=== PATIENT | female | born 1980 | race Hispanic/Latino ===

== ENCOUNTER 2022-09-07 18:50 | Observation (INO) | payer BC ==
--- OUTSIDE RECORDS SUMMARY | 2022-09-07 18:55 | XMS REPORT | Continuity of Care Document ---
:1980 Author Organization [facility] t Address [address] [place] [address] Dr. [address]. [address] [place] [address] Care Team Providers Name Role Phone Juan José Kaplan Jr. Primary Care Physician DR SULAIMAN LOPEZ Attending Clinician Unavailable Rissa Buckner PA-C Attending Clinician Padmini ALTMAN, Audrey Pineda Attending Clinician Unavailable Only, Ang Db Test Attending Clinician Unavailable Cassidy Martinez Attending Clinician CASSIDY PRIEST Attending Clinician Unavailable SHARON MUHAMMAD Attending Clinician Unavailable Laenn Cortes Attending Clinician LEANN LOCKE Attending Clinician Unavailable Rogelio ALTMAN, Yeny Mckeon Attending Clinician Unavailable RISSA BUCKNER Attending Clinician Unavailable Doctor Unassigned, [place] Attending Clinician Unavailable Juan José Kaplan Attending Clinician Unavailable Juan José Kaplan Attending Clinician Lab, [facility] Pob I Attending Clinician Unavailable Tian Correia Attending Clinician Unavailable Nurse, [facility] Pob I Attending Clinician Unavailable Jennifer FIELD CROP FARMING SUPERVISOR, Argenis Attending Clinician Rachel ALTMAN, Asiya Attending Clinician Unavailable Prasanna FIELD CROP FARMING SUPERVISOR, Sharon Attending Clinician Ari ALTMAN, Joi Hargrove Attending Clinician Unavailable Only, Adc Test Attending Clinician Unavailable Lionel LEE, Claus Attending Clinician Michael LEE, Cristi Parry Attending Clinician Halle Heller Attending Clinician Unavailable KAITLYNN SHIN Attending Clinician Unavailable DR SULAIMAN LOPEZ Admitting Clinician Unavailable Juan José Kaplan Admitting Clinician Unavailable Halle Heller Admitting Clinician Unavailable Physician, No Primary or Family Admitting Clinician Unavaila ble Payers Payer Name Policy Type Policy Number Effective Date Expiration Date S rissa [id number] 1959 00:00:00 Problems Condition Condition Condition Status Onset Resolution Last Treating Co mments Source Name Details Category Date Date Treatment Clinician Date Loss of Loss of Disease Active Univers weight weight 7-30 ity of 00:00: [place] [address] Medical Branch Nausea Nausea Disease Active Univers with with 7-30 ity of vomiting vomiting 00:00: [address] Branch Normal Normal Disease Active Univers delivery delivery 7-25 ity of 00:00: [place] [address] Medical [place] Hypothyroi Hypothyroi Disease Active Overview : Univers dism dism Formattin ity of g of this [place] note Medical might be Branch different from the original. ICD10 Diagnosis Term Lab Asst Utility Asthma Asthma Disease Active Overview: Univer s Formattin ity of g of this [place] note Medical might be Branch different from the original. ICD10 Diagnosis Term Lab Asst Utility Vaginal Vaginal Disease Active Overview: Univ ers leukorrhea leukorrhea Formattin ity of g of this [place] note Medical might be Branch different from the original. ICD10 Diagnosis Term Lab Asst Utility Morbid Morbid Disease Active Univers obesity obesity ity of [facility] Supervisio Supervisio Disease Active Overview : Univers n of other n of other Formattin ity of high-risk high-risk g of this [place] Medi obinna might be Branch different from the original. ICD10 Diagnosis Term Lab Asst Utility Allergies, Adverse Reactions, Alerts Allergy Allergy Status Severity Reaction(s) Onset Inactive Treating Comm ents Source Name Type Date Date Clinician No Known DA Active [facility] 2020-0 [facility] No Known DA Active U 2020-0 [facility] Allergie 8-24 [facility] 00:[facility] 00 l [facility] No Known DA Active U 2020-0 [facility] Allergie 2-24 [place] [facility] 00:[facility]: d 00 [facility] No Known DA Active U 2020-0 [facility] Allergie 2-24 [place] 00:[facility]: d 00 [facility] NO KNOWN Drug Active Univers ALLERGIE Class ity of S [facility] No Known DA Active [facility] s Social History Social Habit Start Date Stop Date Quantity Comments Source History SDOH University o f Alcohol Frequency [facility] edical Branch History SDOH University o f Alcohol Std [place] [facility] Drinks Branch History SDOH University o f Alcohol Binge [place] Medic al [place] Alcohol intake 2022-05-09 2022-05-09 0 /d University of 00:00:00 00:00:00 [facility] Exposure to 2022-03-25 2022-04-04 Yes [facility] SARS-CoV-2 00:00:00 14:26:00 [facility] (event) [place] Tobacco use and 2015-11-23 2015-11-23 Smokeless tobacco Un iversity of exposure 00:00:00 00:00:00 non-user [facility] Alcohol Comment 2015-11-23 2015-11-23 Rare Universit y of 00:00:00 00:00:00 [facility] Sex Assigned At [birth year] Universit y of 00:00:00 00:00:00 [facility] Smoking Status Start Date Stop Date Source Never smoked tobacco [facility] Medications Ordered Filled Start Stop Current Ordering Indication Dosage Frequency Signature Comments Components Source Medication Medication Date Date Medication? Clinician (SIG) Name Name tequilaphenira Yes [id number] 5mL Take 5 mL Univers mine-pseudo 1-23 by mouth 3 it y of ephedrine-D 00:00: (three) Buddy as M (BROMFED 00 times Medical DM) 2-30-10 daily as Bran ch mg/5 mL needed for syrup Cold symptoms. fluticasone 0 Yes [id number] 2{spray Use 2 Univers propionate 1-23 } Sprays in ity of 50 00:00: each [place] mcg/actuati 00 nostril Medic al on nasal daily. Branch spray cetirizine 0 Yes [id number] 10mg Take 1 U nivers 10 mg 1-23 tablet by ity of tablet 00:00: mouth [place] 00 daily. Medical Branch bromphenira 0 Yes [id number] 5mL Take 5 mL Univers mine-pseudo 1-23 by mouth 3 it y of ephedrine-D 00:00: (three) Buddy as M (BROMFED 00 times Medical DM) 2-30-10 daily as Bran ch mg/5 mL needed for syrup Cold symptoms. fluticasone 0 Yes [id number] 2{spray Use 2 Univers propionate 1-23 } Sprays in ity of 50 00:00: each [place] mcg/actuati 00 nostril Medic al on nasal daily. Branch spray cetirizine 0 Yes [id number] 10mg Take 1 U nivers 10 mg 1-23 tablet by ity of tablet 00:00: mouth [place] 00 daily. Medical Branch bromphenira 0 Yes [id number] 5mL Take 5 mL Univers mine-pseudo 1-23 by mouth 3 it y of ephedrine-D 00:00: (three) Buddy as M (BROMFED 00 times Medical DM) 2-30-10 daily as Bran ch mg/5 mL needed for syrup Cold symptoms. fluticasone 2021-0 Yes [id number] 2{spray Use 2 Univers propionate 1-23 } Sprays in ity of 50 00:00: each [place] mcg/actuati 00 nostril Medic al on nasal daily. Branch spray cetirizine 2021-0 Yes [id number] 10mg Take 1 U nivers 10 mg 1-23 tablet by ity of tablet 00:00: mouth [place] 00 daily. Medical Branch bromphenira 2022-0 Yes [id number] 5mL Take 5 mL Univers mine-pseudo 1-23 by mouth 3 it y of ephedrine-D 00:00: (three) Buddy as M (BROMFED 00 times Medical DM) 2-30-10 daily as Bran ch mg/5 mL needed for syrup Cold symptoms. fluticasone 2021-0 Yes [id number] 2{spray Use 2 Univers propionate 1-23 } Sprays in ity of 50 00:00: each [place] mcg/actuati 00 nostril Medic al on nasal daily. Branch spray cetirizine 0 Yes [id number] 10mg Take 1 U nivers 10 mg 1-23 tablet by ity of tablet 00:00: mouth [place] 00 daily. Medical Branch bromphenira 0 Yes [id number] 5mL Take 5 mL Univers mine-pseudo 1-23 by mouth 3 it y of ephedrine-D 00:00: (three) Buddy as M (BROMFED 00 times Medical DM) 2-30-10 daily as Bran ch mg/5 mL needed for syrup Cold symptoms. fluticasone 2021-0 Yes [id number] 2{spray Use 2 Univers propionate 1-23 } Sprays in ity of 50 00:00: each [place] mcg/actuati 00 nostril Medic al on nasal daily. Branch spray cetirizine 0 Yes [id number] 10mg Take 1 U nivers 10 mg 1-23 tablet by ity of tablet 00:00: mouth [place] 00 daily. Medical Branch bromphenira 0 Yes [id number] 5mL Take 5 mL Univers mine-pseudo 1-23 by mouth 3 it y of ephedrine-D 00:00: (three) Buddy as M (BROMFED 00 times Medical DM) 2-30-10 daily as Bran ch mg/5 mL needed for syrup Cold symptoms. fluticasone 2021-0 Yes [id number] 2{spray Use 2 Univers propionate 1-23 } Sprays in ity of 50 00:00: each [place] mcg/actuati 00 nostril Medic al on nasal daily. Branch spray cetirizine 2021-0 Yes [id number] 10mg Take 1 U nivers 10 mg 1-23 tablet by ity of tablet 00:00: mouth [place] 00 daily. Medical Branch bromphenira 2021-0 Yes [id number] 5mL Take 5 mL Univers mine-pseudo 1-23 by mouth 3 it y of ephedrine-D 00:00: (three) Buddy as M (BROMFED 00 times Medical DM) 2-30-10 daily as Bran ch mg/5 mL needed for syrup Cold symptoms. fluticasone 2021-0 Yes [id number] 2{spray Use 2 Univers propionate 1-23 } Sprays in ity of 50 00:00: each [place] mcg/actuati 00 nostril Medic al on nasal daily. Branch spray cetirizine 2021-0 Yes [id number] 10mg Take 1 U nivers 10 mg 1-23 tablet by ity of tablet 00:00: mouth [place] 00 daily. Medical Branch bromphenira 0 Yes [id number] 5mL Take 5 mL Univers mine-pseudo 1-23 by mouth 3 it y of ephedrine-D 00:00: (three) Buddy as M (BROMFED 00 times Medical DM) 2-30-10 daily as Bran ch mg/5 mL needed for syrup Cold symptoms. fluticasone 2021-0 Yes [id number] 2{spray Use 2 Univers propionate 1-23 } Sprays in ity of 50 00:00: each [place] mcg/actuati 00 nostril Medic al on nasal daily. Branch spray cetirizine 2021-0 Yes [id number] 10mg Take 1 U nivers 10 mg 1-23 tablet by ity of tablet 00:00: mouth [place] 00 daily. Medical Branch bromphenira 2021-0 Yes [id number] 5mL Take 5 mL Univers mine-pseudo 1-23 by mouth 3 it y of ephedrine-D 00:00: (three) Buddy as M (BROMFED 00 times Medical DM) 2-30-10 daily as Bran ch mg/5 mL needed for syrup Cold symptoms. fluticasone 2021-0 Yes [id number] 2{spray Use 2 Univers propionate 1-23 } Sprays in ity of 50 00:00: each [place] mcg/actuati 00 nostril Medic al on nasal daily. Branch spray cetirizine 2021-0 Yes [id number] 10mg Take 1 U nivers 10 mg 1-23 tablet by ity of tablet 00:00: mouth [place] 00 daily. Medical Branch ALBUTEROL [id number] Yes PRN Univers INHALE 2-15 ity of 19:14: [address] levothyroxi 0 Yes 300ug Take 300 U nivers ne 2-15 mcg by ity of (SYNTHROID, 19:14: mouth [place] LEVOTHROID) 41 daily. Medica l 300 mcg Branch tablet ALBUTEROL 0 Yes PRN Univers INHALE 2-15 ity of 19:14: [address] levothyroxi 0 Yes 300ug Take 300 U nivers ne 2-15 mcg by ity of (SYNTHROID, 19:14: mouth [place] LEVOTHROID) 41 daily. Medica l 300 mcg Branch tablet ALBUTEROL 0 Yes PRN Univers INHALE 2-15 ity of 19:14: [address] levothyroxi Yes 300ug Take 300 U nivers ne 2-15 mcg by ity of (SYNTHROID, 19:14: mouth [place] LEVOTHROID) 41 daily. Medica l 300 mcg Branch tablet ALBUTEROL 0 Yes PRN Univers INHALE 2-15 ity of 19:14: [address] levothyroxi Yes 300ug Take 300 U nivers ne 2-15 mcg by ity of (SYNTHROID, 19:14: mouth [place] LEVOTHROID) 41 daily. Medica l 300 mcg Branch tablet ALBUTEROL 0 Yes PRN Univers INHALE 2-15 ity of 19:14: [address] levothyroxi Yes 300ug Take 300 U nivers ne 2-15 mcg by ity of (SYNTHROID, 19:14: mouth [place] LEVOTHROID) 41 daily. Medica l 300 mcg Branch tablet ALBUTEROL 0 Yes PRN Univers INHALE 2-15 ity of 19:14: [address] levothyroxi 0 Yes 300ug Take 300 U nivers ne 2-15 mcg by ity of (SYNTHROID, 19:14: mouth [place] LEVOTHROID) 41 daily. Medica l 300 mcg Branch tablet ALBUTEROL 0 Yes PRN Univers INHALE 2-15 ity of 19:14: [address] levothyroxi 0 Yes 300ug Take 300 U nivers ne 2-15 mcg by ity of (SYNTHROID, 19:14: mouth [place] LEVOTHROID) 41 daily. Medica l 300 mcg Branch tablet ALBUTEROL 2016-0 Yes PRN Univers INHALE 2-15 ity of 19:14: [address] levothyroxi 2016-0 Yes 300ug Take 300 U nivers ne 2-15 mcg by ity of (SYNTHROID, 19:14: mouth [place] LEVOTHROID) 41 daily. Medica l 300 mcg Branch tablet ALBUTEROL 2015-0 Yes PRN Univers INHALE 2-15 ity of 19:14: [address] levothyroxi [id number] Yes 300ug Take 300 U nivers ne 2-15 mcg by ity of (SYNTHROID, 19:14: mouth [place] LEVOTHROID) 41 daily. Medica l 300 mcg Branch tablet ALBUTEROL 2015-0 Yes PRN Univers INHALE 2-15 ity of 19:14: [address] levothyroxi Yes 300ug Take 300 U nivers ne 2-15 mcg by ity of (SYNTHROID, 19:14: mouth [place] LEVOTHROID) 41 daily. Medica l 300 mcg Branch tablet ALBUTEROL 0 Yes PRN Univers INHALE 2-15 ity of 13:14: [address] levothyroxi 0 Yes 300ug Take 300 U nivers ne 2-15 mcg by ity of (SYNTHROID, 13:14: mouth [place] LEVOTHROID) 41 daily. Medica l 300 mcg Branch tablet ALBUTEROL 0 Yes PRN Univers INHALE 2-15 ity of 13:14: [address] levothyroxi 0 Yes 300ug Take 300 U nivers ne 2-15 mcg by ity of (SYNTHROID, 13:14: mouth [place] LEVOTHROID) 41 daily. Medica l 300 mcg Branch tablet ALBUTEROL 2015-0 Yes PRN Univers INHALE 2-15 ity of 13:14: [address] levothyroxi 2016-0 Yes 300ug Take 300 U nivers ne 2-15 mcg by ity of (SYNTHROID, 13:14: mouth [place] LEVOTHROID) 41 daily. Medica l 300 mcg Branch tablet ALBUTEROL 0 Yes PRN Univers INHALE 2-15 ity of 13:14: [address] levothyroxi 2016-0 Yes 300ug Take 300 U nivers ne 2-15 mcg by ity of (SYNTHROID, 13:14: mouth [place] LEVOTHROID) 41 daily. Medica l 300 mcg Branch tablet ALBUTEROL 0 Yes PRN Univers INHALE 2-15 ity of 13:14: [place] [address] Medical [place] levothyroxi [id number] Yes 300ug Take 300 U nivers ne 2-15 mcg by ity of (SYNTHROID, 13:14: mouth [place] LEVOTHROID) 41 daily. Medica l 300 mcg Branch tablet ALBUTEROL 0 Yes PRN Univers INHALE 2-15 ity of 13:14: [place] [address] Medical [place] levothyroxi Yes 300ug Take 300 U nivers ne 2-15 mcg by ity of (SYNTHROID, 13:14: mouth [place] LEVOTHROID) 41 daily. Medica l 300 mcg Branch tablet ALBUTEROL 0 Yes PRN Univers INHALE 2-15 ity of 13:14: [address] levothyroxi Yes 300ug Take 300 U nivers ne 2-15 mcg by ity of (SYNTHROID, 13:14: mouth [place] LEVOTHROID) 41 daily. Medica l 300 mcg Branch tablet ALBUTEROL 0 Yes PRN Univers INHALE 2-15 ity of 13:14: [address] levothyroxi 0 Yes 300ug Take 300 U nivers ne 2-15 mcg by ity of (SYNTHROID, 13:14: mouth [place] LEVOTHROID) 41 daily. Medica l 300 mcg Branch tablet ALBUTEROL 0 Yes PRN Univers INHALE 2-15 ity of 13:14: [place] [address] Medical [place] levothyroxi 0 Yes 300ug Take 300 U nivers ne 2-15 mcg by ity of (SYNTHROID, 13:14: mouth [place] LEVOTHROID) 41 daily. Medica l 300 mcg Branch tablet ALBUTEROL 0 Yes PRN Univers INHALE 2-15 ity of 13:14: [place] [address] Medical [place] levothyroxi 0 Yes 300ug Take 300 U nivers ne 2-15 mcg by ity of (SYNTHROID, 13:14: mouth [place] LEVOTHROID) 41 daily. Medica l 300 mcg Branch tablet Vital Signs Vital Name Observation Time Observation Value Comments Source Height 2020-04-07 13:35:00 167.64 CM Weight 2020-04-07 13:35:00 75.74 KG Systolic blood 2021-11-20 18:05:00 123 mm[Hg] Univer sity of pressure [facility] Diastolic blood 2021-11-20 18:05:00 80 mm[Hg] Unive rsity of pressure [facility] Heart rate 2021-11-20 18:05:00 60 /min [facility] Body temperature 2021-11-20 18:05:00 37.06 Geeta Univ ersity of [facility] Body height 2021-11-20 18:05:00 167.6 cm [facility] Body weight 2021-11-20 18:05:00 81.761 kg [facility] BMI 2021-11-20 18:05:00 29.09 kg/m2 [facility] Oxygen saturation in 2021-11-20 18:05:00 97 /min [facility] blood by [facility] Pulse oximetry Branch Procedures Procedure Date / Time Performing Clinician Source Performed POCT MOLECULAR STREP 2021-11-20 18:18:00 Rissa Buckner [facility] NO SHOW OR MISSED 2021-11-20 17:54:59 Doctor Unassigned, [facility] APPOINTMENT POLICY [facility] h ACKNOWLEDGEMENT ASSIGNMENT OF BENEFITS 2020-04-06 13:52:56 Doctor Unassigned, [facility] [place] Encounters Start End Encounter Admission Attending Care Care Encounter Source Date/Time Date/Time Type Type Clinicians Facility Department ID 2020-04-09 [facility] [id number] [facility] 05:53:00 [facility] 2020-03-26 Inpatient C [facility] [id number] [facility] 07:30:00 [facility] 2022-07-21 2022-07-21 GIUSEPPE Garcia [id number] [facility] 00:00:00 00:00:00 [facility] [id number] it y of [place] 4.2.7.2.686 Buddy as STACI?BLEA [id number] [address] MEDICAL OFFICE BUILDING 2022-05-09 2022-05-09 [facility] [id number] Univers 00:00:00 00:00:00 Rissa HEALTH 350.1.13.10 it y of [place] 4.2.7.2.686 Buddy as STACI?BLEA [id number] [address] OFFICE [facility] 2022-04-05 2022-04-05 HALLE Casas [id number] Univers 00:00:00 00:00:00 (Out) Audrey T PAPO [id number] it y of [facility] 4.2.7.2.686 Buddy as [id number] [address] 2022-04-04 2022-04-04 Laboratory Only, Ang Db Test [facility] 1.2.8 40.114 [id number] Univers 14:30:00 14:45:00 Only Joni [facility] [id number] ity of [place] 4.2.7.2.686 Buddy as STACI?BLEA [id number] [address] OFFICE [facility] 2022-04-04 2022-04-04 [facility] [id number] Univers 14:30:00 14:40:45 [facility] 2021-12-23 2021-12-23 HALLE Casas [id number] Univers 00:00:00 00:00:00 (Out) Audrey BARROS 350.1.13.10 it y of HOSPITAL 4.2.7.2.686 Buddy as [id number] [address] 2021-12-22 2021-12-22 Outpatient R PRASANNA [facility] [id number] Univers 10:40:00 10:43:40 SHARON ity [facility] [place] [facility] 2021-12-06 2021-12-06 Outpatient R [facility] [id number] Univers 13:30:00 13:30:00 ity [facility] [place] [facility] 2021-12-06 2021-12-06 Laboratory Only, Ang Db Test [facility] 1.2.8 40.114 [id number] Univers 09:00:00 09:15:00 Only William, Leann HEALTH 350.1.13.10 ity of [place] 4.2.7.2.686 Buddy as STACI?BLEA [id number] [address] MEDICAL OFFICE BUILDING 2021-12-06 2021-12-06 Outpatient R WILLIAM [facility] [id number] Univers 09:00:00 09:14:19 LEANN ity o f [facility] 2021-12-06 2021-12-06 Telephone HALLE Mercado [id number] Univers 00:00:00 00:00:00 Yeny BARROS 350.1.13.10 ity of [facility] 4.2.7.2.686 Buddy as [id number] [address] 2021-11-21 2021-11-21 Letter HALLE [place] [id number] Univers 00:00:00 00:00:00 (Out) Audrey BARROS 350.1.13.10 it y of HOSPITAL 4.2.7.2.686 Buddy as [id number] [address] 2021-11-20 2021-11-20 [facility] [id number] Univers 11:40:00 12:46:38 RISSA ity [facility] [place] [facility] 2021-11-20 2021-11-20 [facility] [id number] Univers 11:40:00 12:00:[address] [facility] 350.1.13.10 it y of [place] 4.2.7.2.686 Buddy as STACI?BLEA [id number] [address] MEDICAL OFFICE [facility] 2021-11-20 2021-11-20 Orders Doctor NERI 1.2.840.114 [id number] Univers 00:00:00 00:00:00 Only UnassignedPAPO 350.1.13.10 ity of [place] [facility] 4.2.7.2.686 Buddy as [id number] [address] 2020-11-12 2020-11-12 Outpatient EL Rosaura [facility] MAR[facility] [id number] [facility] 12:00:00 12:00:00 Juan José [facility] 2020-10-04 2020-10-04 [facility] 1.2.840.114 [id number] Univers 00:00:00 00:00:00 (Out) Juan José E Health 350.1.13.10 it y of [place] 4.2.7.2.686 Buddy as Professio [phone] Id dic[address] Office Building [facility] 2020-10-04 2020-10-04 Letter [facility] 1.2.840.114 [id number] 00:00:00 00:00:00 (Out) Juan José E Health 350.1.13.10 [place] 4.2.7.2.686 Professio [phone] [place] [address] Office Building [facility] 2020-10-03 2020-10-03 Laboratory Lab, [facility] Fam Pob I [facility] 1.2. 840.114 [id number] Univers 08:11:47 08:20:00 Only Cassidy [facility] 350.1.13.10 ity of [place] 4.2.7.2.686 Buddy as Professio [id number] Id dic[address] Office Building [facility] 2020-10-03 2020-10-03 Laboratory Lab, [facility] 1.2.840.114 [id number] 08:11:47 08:20:00 Only Fam Pob I Health 350.1.13.10 [place] 4.2.7.2.686 Professio [id number] [place] [address] Office Building [facility] 2020-10-03 2020-10-03 Outpatient R JONI [facility] [id number] Univers 08:00:00 08:00:00 CASSIDY ity of [facility] 2020-06-21 2020-08-12 Inpatient Bren, [facility] [id number] [facility] 09:00:00 14:00:06 [facility] 2020-06-16 2020-06-16 Letter HALLE [place] 1.2.840.114 [id number] 00:00:00 00:00:00 (Out) Audrey T PAPO 350.1.13.10 HOSPITAL 4.2.7.2.686 [id number] 2020-06-16 2020-06-16 Letter HALLE [place] 1.2.840.114 [id number] Univers 00:00:00 00:00:00 (Out) Audrey Pineda PAPO 350.1.13.10 it y of HOSPITAL 4.2.7.2.686 Buddy as [id number] [address] 2020-06-15 2020-06-15 Telephone Nurse, [facility] 1.2.840.114 [id number] 00:00:00 00:00:00 Fam Pob I Health 350.1.13.10 [place] 4.2.7.2.686 Professio [id number] [place] [address] Office Building [facility] 2020-06-15 2020-06-15 Telephone Nurse, [facility] 1.2.840.114 [id number] [facility] 00:00:00 00:00:00 Fam Pob I Health 350.1.13.10 ity of [place] 4.2.7.2.686 Buddy as Professio [phone] Id dical nal [address] [place] [address] Office Building [facility] 2020-06-14 2020-06-14 Laboratory Lab, [facility] 1.2.840.114 [id number] 16:06:02 16:26:02 Only Fam Pob I Health 350.1.13.10 [place] 4.2.7.2.[phone] [facility] Office Building [facility] 2020-06-14 2020-06-14 Laboratory Lab, [facility] Fam Pob I [facility] 1.2. 840.114 [id number] [facility] 16:06:02 16:26:02 Only Anene, Argenis Health 350.1.13.10 ity of [place] 4.2.7.2.686 Ubddy as Professio [phone] Id dical nal [address] [place] [address] Office Building [facility] 2020-06-14 2020-06-14 Outpatient R [facility] [id number] Univers 16:00:00 16:00:00 ity of [facility] 2020-06-01 2020-06-12 Inpatient GLADYS Correia, [facility] [id number] [facility] 14:00:00 03:38:35 Christopher 97 [facility] 2020-05-04 2020-05-04 Telephone HALLE Ramos [id number] 00:00:00 00:00:00 Asiya BARROS 350.1.13.10 HOSPITAL 4.2.7.2.686 [id number] 2020-05-04 2020-05-04 Telephone HALLE Ramos [id number] [facility] 00:00:00 00:00:00 Asiya BARROS 350.1.13.10 it y of [facility] 4.2.7.2.686 Buddy as [id number] [address] 2020-05-02 2020-05-02 Laboratory Lab, [facility] 1.2.840.114 [id number] 10:25:55 10:45:55 Only Fam Pob I Health 350.1.13.10 [place] 4.2.7.2.686 Professio [id number] [place] [address] Office Building [facility] 2020-05-02 2020-05-02 Laboratory Lab, [facility] Fam Pob I [facility] 1.2. 840.114 [id number] [facility] 10:25:55 10:45:55 Only Ebrahim, [facility] 350.1.13.10 ity [facility] 4.2.7.2.686 Buddy as Professio [phone] Id dical [address] Office Building [facility] 2020-05-02 2020-05-02 Outpatient R [facility] [id number] Univers 10:40:00 10:40:00 ity of [facility] 2020-04-07 2020-04-07 Telephone HALLE Chapman LucianaKathy2.794.862 [id number] 00:00:00 00:00:00 Joi BARROS 350.1.13.10 [facility] 4.2.7.2.686 [id number] 2020-04-07 2020-04-07 Telephone HALLE Chapman [id number] [facility] 00:00:00 00:00:00 Joi CABRALY 350.1.13.10 i ty [facility] 4.2.7.2.686 Buddy as [phone] [address] 2020-04-06 2020-04-06 Laboratory Only, [facility] 1.2.840.114 [id number] 08:57:50 09:12:50 Only Test [place] 350.1.13.10 Misael 4.2.7.2.686 [place] [id number] 353 2020-04-06 2020-04-06 Laboratory Only, [facility] Test [facility] 1.2.840. 114 [id number] [facility] 08:57:50 09:12:50 Only Claus Flowers 350.1.13.10 ity of Cristi Rodriguez [place] 4.2.7.2.686 [facility] [id number] [facility] [address] 2020-04-06 2020-04-06 Outpatient R [facility] [id number] Univers 08:00:00 08:00:00 ity of [facility] 2020-04-06 2020-04-06 Orders Doctor HALLE 1.2.840.114 [id number] 00:00:00 00:00:00 Only Unassigned, [place] 350.1.13.10 Ocean [facility] 4.2.7.2.686 [phone] [id number] 2020-04-06 2020-04-06 Orders Doctor HALLE 1.2.840.114 [id number] Univers 00:00:00 00:00:00 Only Unassigned, [place]AP[place] 350.1.13.10 ity of [place] [facility] 4.2.7.2.686 Buddy as [phone] [facility] [address] 2020-01-06 2020-01-07 Inpatient Halle Coreas [facility] MEDI.01 F000 [id number] [facility] 09:05:00 11:58:00 [facility] 2020-01-06 2020-01-06 Outpatient Halle Heller [facility] F00 [id number] [facility] 07:30:00 07:30:00 88 [facility] [place] 2019-10-31 2019-10-31 Outpatient GLADYS SHIN [facility] [id number] [facility] 12:00:00 12:00:[address] [place] [address] Results Test Description Test Time Test Comments Results Result Comments Source POCT MOLECULAR STREP 2021-11-20 18:25:47 Test Item Value Reference Range Interpretation Comme nts POCT Molecular Strep (test code = 75644-0) Negative Negative Lab Interpretation (test code = 33819-1) [id number] 13:18:00 RUN DATE: 06/25/20 [facility] PAGE 1 RUN TIME: 1759 Specimen Inquiry RUN USER: INTERFACE --PATIENT: RISSA CANCINO LOC: PABLOU U #: [id number] AGE/SX: 40/F ROOM: RE06/23/20REG DR: Tian Correia MD : 80 BED: DIS: STATUS: CELESTINE IZAGUIRRE TLOC: SPEC #: [id number] RECD: 06/23/20 STATUS: ANTONIO NG #: [id number] JOHN: 06/23/20- SUBM DR: Tian Correia MD ENTERED: 06/23/20 SP TYPE: URETHRABX OTHR DR: ORDERED: LEVEL IV CODES: [id number] - URETHRA, NOS PROCEDURES: LEVEL IV (Incomplete) TISSUES: URETHRA, NOS - URETHROCELE CLINICAL HISTORY 40 year old, exposure of implanted mesh, initial granulation tissue of vagina (easton) FINAL DIAGNOSIS Urethrocele, resection: - focal subepithelialchronic inflammation CPT code(s): 63379 cds/kr GROSS DESCRIPTION ANATOMIC SOURCE OF TISSUE (per Requisition): Urethrocele The specimen is received in a formalin-filled container, labeled with the patient's name and designated "urethrocele". The specimen consists of 2.7 x 2 x 0.8 cm aggregate of white-pink soft tissues. The tissues are submitted in toto in A1. raf/easton 06/23/20 MICROSCOPIC DESCRIPTION Urethrocele tissue show benign squamous-covered mucosa with focal subepithelial chronic inflammation. ellyn /easton Signed Ashish Sher 06/25/20 1318 END OF REPORT CHEMISTRY 7 [id number] 18:07:00 Test Item Value Reference Range Interpretation Comments SODIUM (test code = NA) 140 mEq/L 135-145 N POTASSIUM (test code = K) 4.2 mEq/L 3.5-5.0 N CHLORIDE (test code = CL) 106 mEq/L 100-115 N CARBON DIOXIDE (test code = CO2) 28 mEq/L 22-31 N ANION GAP (test code = GAP) 9.80 10-20 L GLUCOSE (test code = GLU) 75 mg/dL 65-110 N BLOOD UREA NITROGEN (test code = 12 mg/dL 7-18 N BUN) GLOMERULAR FILTRATION RATE (test 79 ml/min >60 N code = GFR) CREATININE (test code = CREAT) 0.8 mg/dL 0.5-1.0 N CALCIUM (test code = CA) 8.7 mg/dL 8.4-10.2 N CBC W/AUTO [id number] 16:28:00 Test Item Value Reference Range Interpretation Comments WHITE BLOOD CELL (test code = WBC) 5.6 K/mm3 6.6-12.1 L RED BLOOD CELL (test code = RBC) 3.91 M/mm3 3.45-5.01 N HEMOGLOBIN (test code = HGB) 9.8 g/dL 10.7-13.9 L HEMATOCRIT (test code = HCT) 32.6 % 32.1-42.1 N MEAN CELL VOLUME (test code = MCV) 83 fL 84.1-94.8 L MEAN CELL HGB (test code = MCH) 25.1 pg 27-35 L MEAN CELL HGB CONCETRATION (test 30.1 gm/dL 32.2-34.1 L code = MCHC) RED CELL DISTRIBUTION WIDTH (test 15.8 % 12.4-16.5 N code = RDW) PLATELET COUNT (test code = PLT) 246 K/mm3 133-385 N MEAN PLATELET VOLUME (test code = 12.3 fl 9.1-12.7 N MPV) NEUTROPHIL % (test code = NT%) 45.9 % 56.5-79.4 L LYMPHOCYTE % (test code = LY%) 41.6 % 14.3-34.3 H MONOCYTE % (test code = MO%) 9.7 % 5.1-10.4 N EOSINOPHIL % (test code = EO%) 2.2 % 0.1-3.0 N BASOPHIL % (test code = BA%) 0.4 % 0.1-1.0 N NEUTROPHIL # (test code = NT#) 2.6 K/mm3 LYMPHOCYTE # (test code = LY#) 2.3 K/mm3 MONOCYTE # (test code = MO#) 0.5 K/mm3 EOSINOPHIL # (test code = EO#) 0.12 K/mm3 BASOPHIL # (test code = BA#) 0.0 K/mm3 RBC MORPHOLOGY REQUIRED (test code NORMAL NORMAL = RBCM) PLATELET MORPHOLOGY REQUIRED (test NORMAL NORMAL code = PLTMR) COVID 19 Asymptomatic IH [id number] 15:18:00 Test Item Value Reference Range Interpretation Comments COVID 19 Asymptomatic IH AG (test POSITIVE Negative A code = COVNONPUIAG) BASIC METABOLIC [id number] 15:16:00 Test Item Value Reference Range Interpretation Comments SODIUM (test code = NA) 141 mmol/L 134-147 N POTASSIUM (test code = 4.0 mmol/L 3.4-5.0 N K) CHLORIDE (test code = 109 mmol/L 100-108 H CL) CARBON DIOXIDE (test 27 mmol/L 21-32 N code = CO2) ANION GAP (test code = 5.0 GAP calc 4.0-15.0 N GAP) GLUCOSE (test code = 83 MG/DL 70-110 N GLU) BLOOD UREA NITROGEN 14 MG/DL 7-18 N (test code = BUN) GLOMERULAR FILTRATION >=60 max estimate >60 RATE (test code = GFR) estGFR CREATININE (test code = 0.8 MG/DL 0.6-1.0 N CREAT) CALCIUM (test code = CA) 9.0 MG/DL 8.5-10.1 N CBC W/AUTO [id number] 15:15:00 Test Item Value Reference Range Interpretation Comments WHITE BLOOD CELL (test code = 5.5 K/mm3 3.5-11.0 N WBC) RED BLOOD CELL (test code = 4.07 M/mm3 4.70-6.10 L RBC) HEMOGLOBIN (test code = HGB) 10.0 G/DL 10.4-14.9 L HEMATOCRIT (test code = HCT) 31.6 % 31.5-44.1 N MEAN CELL VOLUME (test code = 77.6 Fl 84.5-98.6 L MCV) MEAN CELL HGB (test code = MCH) 24.6 pg 27.0-34.2 L MEAN CELL HGB CONCETRATION 31.6 G/DL 31.5-34.0 N (test code = MCHC) RED CELL DISTRIBUTION WIDTH 16.2 SD 11.5-14.5 H (test code = RDW) PLATELET COUNT (test code = 272 K/mm3 150-450 N PLT) MEAN PLATELET VOLUME (test code 11.50 fL 7.0-10.5 H = MPV) NEUTROPHIL % (test code = NT%) 52.4 % 40-76 N IMMATURE GRANULOCYTE % (test 0.2 % 0.0-5.0 N code = IG%) LYMPHOCYTE % (test code = LY%) 39.1 % 20.5-51.1 N MONOCYTE % (test code = MO%) 7.3 % 1.7-9.3 N EOSINOPHIL % (test code = EO%) 0.6 % 0.0-6.0 N BASOPHIL % (test code = BA%) 0.4 % 0.0-2.0 N NUCLEATED RBC % (test code = 0.4 /100WBC% 0.0-1.0 N NRBC%) NEUTROPHIL # (test code = NT#) 2.9 K/mm3 1.8-7.6 N IMMATURE GRANULOCYTE # (test 0.01 x10 3/uL 0.00-0.03 N code = IG#) LYMPHOCYTE # (test code = LY#) 2.1 K/mm3 0.6-3.2 N MONOCYTE # (test code = MO#) 0.4 K/mm3 0.3-1.1 N EOSINOPHIL # (test code = EO#) 0.0 K/mm3 0.0-0.4 N BASOPHIL # (test code = BA#) 0.0 K/mm3 0.0-0.1 N NUCLEATED RBC # (test code = 0.0 K/mm3 0.0-0.1 N NRBC#) MANUAL DIFF REQUIRED (test code NO DIFF/SCN CRITERIA = MDIFF) UTERUS,OTHER THAN PROLAPSE/[id number] 17:23:00 RUN DATE: 01/12/20 [facility] PAGE 1 RUN TIME: 1915 Specimen Inquiry RUN USER: INTERFACE -PATIENT: RISSA CANCINO LOC: NELIA #: [id number] AGE/SX: 39/F ROOM: [facility] RE01/06/20REGDR: Halle Heller III, MD : 80 BED: A DIS: 01/07/20 STATUS: DIS Rolan TLOC: SPEC #: [id number] RECD: 01/06/20 STATUS: ANTONIO BERENICE #: [id number] JOHN: 01/06/20- SUBM DR: Halle Heller III, MD ENTERED: 01/06/20-1210 SP TYPE: UTERUSOTH OTHR DR: Starla Hung MD ORDERED: LEVEL V SURGICA CODES: [id number] - UTERUS, NOS COPIES TO: Starla Hung MD [address] [facility] [address] [place] [address] [email or web address] Halle Heller III, MD [address] [facility] [address] [place] [address] PROCEDURES: LEVEL V SURGICA (Incomplete) TISSUES: UTERUS, NOS - UTERUS/CERVIX/BILATERAL TUBES CLINICAL HISTORY 39 year old, metrorrhagia, pelvic pain, anemia, dyspareunia (wpd) FINAL DIAGNOSIS Uterus, cervix, bilateral fallopian tubes; hysterectomy and bilateral salpingectomy: cervix - mild chronic inflammation endometrium - secretory phase myometrium - no pathologic alterations uterine serosa - no pathologic alterations bilateral fallopian tubes - no pathologic alterations CPT code(s): 90197 abhijit/easton dt: 01/09/20 GROSS DESCRIPTION ANATOMIC SOURCE OF TISSUE (per Requisition): Uterus, cervix, bilateral tubesThe specimen is received in formalin in a container, labeled with the patient's name and designated "uterus, cervix, bilateral tubes". The specimen consists of a 180 CONTINUED ON NEXT PAGE ------- -----RUN DATE: 01/12/20 [facility] PAGE 2 RUN TIME: 1915 Specimen Inquiry RUN USER: INTERFACE SPEC #: [id number] PATIENT: RISSA CANCINO #[id number] (Continued) GROSS DESCRIPTION (Continued) gm, 11.5 x 8.0 x 5.0 cm intact uterus with an attached cervix and fimbriated fallopian tubes (right 7.0 cm in length and left 8.5 cm in length). The uterine serosa is perera-pink and slightly nodular. The 4.2 cm ectocervix displays a central 1.5 cm slit-like os. The endometrium is perera-red and hemorrhagic with a thickness measuring up to 0.1 cm. The myometrium is trabeculated with a wall thickness measuring up to 2.8 cm. The uterine serosa is unremarkable. There are no nodules. The fallopian tubes are pink-purple and hyperemic with pinpoint lumens. The left tube displays a 1.5 cm clear, serous fluid-filled unremarkable paratubal cyst. Section code: A1 - cervix, A2 - anterior endomyometrium, A3 - posterior endomyometrium, A4 - hardware supplies sales representative sections of right fallopian tube, A5 - hardware supplies sales representative sections of left fallopian tube. swetha/eleni 01/06/20 MICROSCOPIC DESCRIPTION The cervix has a mild infiltrate of small lymphocytes and plasma cells. The endometrium is composed of evenly spaced tortuous glands with luminal secretions and cytoplasmic vacuoles. The myometrium and uterine serosa are unremarkable. The bilateral fallopian tube have intact architecture and are lined by serous epithelium without cytologic atypia. Paratubal cystsare identified bilaterally. abhijit/easton dt: 01/09/20 Signed Rita Huerta 01/09/20 1723 END OF REPORT UTERUS,OTHER THAN PROLAPSE/[id number] 17:23:00 RUN DATE: 01/14/20 [facility] PAGE 1 RUN TIME: 1914 Specimen Inquiry RUN USER: INTERFACE --PATIENT: RISSA CANCINO LOC: NELIA U #: [id number] AGE/SX: 39/F ROOM: [facility] RE01/06/20REG DR: Halle Heller III, MD : 80 BED: A DIS: 01/07/20 STATUS: DIS Rolan TLOC: SPEC #: [id number] RECD: 01/06/20 STATUS: SOUT REQ #: [id number] JOHN: 01/06/20- SUBM DR: Halle Heller III, MD ENTERED: 01/06/20 SP TYPE: UTERUSOTH OTHR DR: Starla Hung MD ORDERED: LEVEL V SURGICA ADDENDUM FINDINGS Addendum #1 Entered: 01/14/20 ADDENDUM GROSS DESCRIPTION: Additional hardware supplies sales representative sections submitted as RE1 through RE. swetha/easton 01/13/20 ADDENDUM MICROSCOPIC DESCRIPTION: A rare focus of superficial adenomyosis is identified. Rita Huerta M.D., Pat hologist/wpd January 14, 2020 Addendum Signed Rita Huerta 01/14/201913 (prelim) Rita Huerta 01/14/201913 CODES: [id number] - UTERUS, NOS COPIESTO: Starla Hung MD [address] [facility] [address] [place] [address] [email or web address] Halle Heller III, MD [address] [facility] [address] [place] [address] PROCEDURES: LEVEL V SURGICA (Incomplete) CONTINUED ON NEXT PAGE RUN DATE: 01/14/20 [facility] PAGE 2 RUN TIME: 1914 Specimen Inquiry RUN USER: INTERFACE SPEC #: [id number] PATIENT: RISSA CANCINO #[id number] (Contin ued) TISSUES: UTERUS, NOS - UTERUS/CERVIX/BILATERAL TUBES CLINICAL HISTORY 39 year old, metrorrhagia, pelvic pain, anemia, dyspareunia (wpd) FINAL DIAGNOSIS Uterus, cervix, bilateral fallopian tubes; hysterectomy and bilateral salpingectomy: cervix - mild chronic inflammation endometrium - secretory phase myometrium - no pathologic alterations uterine serosa - no pathologic alterations bilateral fallopian tubes - no pathologic alterations CPT code(s): 11132 irag/easton dt: 01/09/20 GROSS DESCRIPTION ANATOMIC SOURCE OF TISSUE (per Requisition): Uterus, cervix, bilateral tubes The specimen is received in formalin in a container, labeled with the patient's name and designated "uterus, cervix, bilateral tubes". Thespecimen consists of a 180 gm, 11.5 x 8.0 x 5.0 cm intact uterus with an attached cervix and fimbriated fallopian tubes (right 7.0 cm in length and left 8.5 cm in length). The uterine serosa is perera-pink and slightly nodular. The 4.2 cm ectocervix displays a central 1.5 cm slit-like os. The endometriumis perera-red and hemorrhagic with a thickness measuring up to 0.1 cm. The myometrium is trabeculated with a wall thickness measuring up to 2.8 cm. The uterine serosa is unremarkable. There are no nodules. The fallopian tubes are pink-purple and hyperemic with pinpoint lumens. The left tube displays a 1.5 cm clear, serous fluid-filled unremarkable paratubal cyst. Section code: A1 - cervix, A2 - anteriorendomyometrium, A3 - posterior endomyometrium, A4 - hardware supplies sales representative sections of right fallopian tube,A5 - hardware supplies sales representative sections of left fallopian tube. swetha/eleni 01/06/20 MICROSCOPIC DESCRIPTION The cervix has a mild infiltrate of small lymphocytes and plasma cells. The endometrium is composed of evenly spaced tortuous glands with luminal secretions and cytoplasmic vacuoles. The myometrium and uterineserosa are unremarkable. The bilateral fallopian tube have intact architecture and are lined by serous epithelium without cytologic atypia. Paratubal cysts are identified bilaterally. abhijit/easton dt: 01/09/20 CONTINUED ON NEXT PAGE RUN DATE: 01/14/20 [facility] PAGE 3 RUN TIME: 1914 Specimen InquiryRUN USER: INTERFACE SPEC #: [id number] PATIENT: RISSA CANCINO #[id number] (Continued) Signed BradleyRita 01/09/20 1723 END OF REPORT HGB [id number] 05:25:00 Test Item Value Reference Range Interpretation Comments HEMOGLOBIN (test code = HGB) 8.5 g/dL 10.7-13.9 L HEMATOCRIT (test code = HCT) 27.7 % 32.1-42.1 L UR HCG [id number] 07:00:00 Test Item Value Reference Range Interpretation Comments UR HCG QUAL (test NEGATIVE 1. Very di lute urine code = HCGQLU) specimens, as indicated by a lowspecific g ravity, may not contain rep resentative levels ofhCG. 2 . False negative result s may occur when the levels of hCGare below the sensi tivity level of the test. If is still suspec bradley, a first morningurine sp ecimen should be colle cted 48 hours later and tested. CHEMISTRY 7 [id number] 18:17:00 Test Item Value Reference Range Interpretation Comments SODIUM (test code = NA) 138 mEq/L 135-145 N POTASSIUM (test code = K) 3.7 mEq/L 3.5-5.0 N CHLORIDE (test code = CL) 101 mEq/L 100-115 N CARBON DIOXIDE (test code = CO2) 29 mEq/L 22-31 N ANION GAP (test code = GAP) 12.10 10-20 N GLUCOSE (test code = GLU) 101 mg/dL 65-110 N BLOOD UREA NITROGEN (test code = 15 mg/dL 7-18 N BUN) GLOMERULAR FILTRATION RATE (test 80 ml/min >60 N code = GFR) CREATININE (test code = CREAT) 0.8 mg/dL 0.5-1.0 N CALCIUM (test code = CA) 9.4 mg/dL 8.4-10.2 N HCG SERUM [id number] 18:17:00 Test Item Value Reference Range Interpretation Comments HCG SERUM QUAL (test code = HCGQL) NEGATIVE CHEMISTRY 7 [id number] 18:11:00 Test Item Value Reference Range Interpretation Comments SODIUM (test code = NA) mEq/L 135-145 POTASSIUM (test code = K) mEq/L 3.5-5.0 CHLORIDE (test code = CL) mEq/L 100-115 CARBON DIOXIDE (test code = CO2) mEq/L 22-31 ANION GAP (test code = GAP) 10-20 GLUCOSE (test code = GLU) mg/dL 65-110 BLOOD UREA NITROGEN (test code = BUN) mg/dL 7-18 CREATININE (test code = CREAT) mg/dL 0.5-1.0 CALCIUM (test code = CA) mg/dL 8.4-10.2 HCG SERUM [id number] 18:11:00 Test Item Value Reference Range Interpretation Comments HCG SERUM QUAL (test code = HCGQL) NEGATIVE URINALYSIS [id number] 17:52:00 Test Item Value Reference Range Interpretation Comments UA COLOR (test code = COLU) STRAW YELLOW UA APPEARANCE (test code = CLEAR CLEAR APPU) UA GLUCOSE DIPSTICK (test code NEGATIVE NEG = DGLUU) UA BILIRUBIN DIPSTICK (test NEGATIVE NEG code = BILU) UA KETONE DIPSTICK (test code NEGATIVE NEG = KETU) UA SPECIFIC GRAVITY (test code 1.005 1.001-1.035 N = SGU) UA BLOOD DIPSTICK (test code = NEG NEG REVA) UA PH DIPSTICK (test code = 6.0 5-9 SARA) UA PROTEIN DIPSTICK (test code NEGATIVE NEG = PROU) UA UROBILINIOGEN DIPSTICK NEGATIVE mg/dL NEG (test code = URO) UA NITRITE DIPSTICK (test code NEG NEG = JIMMY) UA LEUKOCYTE ESTERASE DIPSTICK NEG NEG (test code = LEUU) UA WBC (test code = WBCU) 0-2 #/hpf NONE SEEN UA RBC (test code = RBCU) 0-2 #/hpf NONE SEEN UA EPITHELIAL CELLS (test code RARE #/HPF RARE-FEW = EPIU) UA MUCUS (test code = MUCU) RARE NONE SEEN URINE SAMPLE: CLEAN CATCHCBC W/AUTO [id number] 17:50:00 Test Item Value Reference Range Interpretation Comments WHITE BLOOD CELL (test code = WBC) 5.7 K/mm3 6.6-12.1 L RED BLOOD CELL (test code = RBC) 4.19 M/mm3 3.45-5.01 N HEMOGLOBIN (test code = HGB) 9.9 g/dL 10.7-13.9 L HEMATOCRIT (test code = HCT) 33.0 % 32.1-42.1 N MEAN CELL VOLUME (test code = MCV) 79 fL 84.1-94.8 L MEAN CELL HGB (test code = MCH) 23.6 pg 27-35 L MEAN CELL HGB CONCETRATION (test 30.0 gm/dL 32.2-34.1 L code = MCHC) RED CELL DISTRIBUTION WIDTH (test 14.8 % 12.4-16.5 N code = RDW) PLATELET COUNT (test code = PLT) 313 K/mm3 133-385 N MEAN PLATELET VOLUME (test code = 11.9 fl 9.1-12.7 N MPV) NEUTROPHIL % (test code = NT%) 46.9 % 56.5-79.4 L LYMPHOCYTE % (test code = LY%) 43.1 % 14.3-34.3 H MONOCYTE % (test code = MO%) 7.9 % 5.1-10.4 N EOSINOPHIL % (test code = EO%) 1.6 % 0.1-3.0 N BASOPHIL % (test code = BA%) 0.5 % 0.1-1.0 N NEUTROPHIL # (test code = NT#) 2.7 K/mm3 LYMPHOCYTE # (test code = LY#) 2.5 K/mm3 MONOCYTE # (test code = MO#) 0.5 K/mm3 EOSINOPHIL # (test code = EO#) 0.09 K/mm3 BASOPHIL # (test code = BA#) 0.0 K/mm3 RBC MORPHOLOGY REQUIRED (test code NORMAL NORMAL = RBCM) PLATELET MORPHOLOGY REQUIRED (test NORMAL NORMAL code = PLTMR)
[2022-09-07] MEDS ORDERED: MORPHINE 4 MG/ML SYR ONE (19:42)
[2022-09-07] MEDS ORDERED: NA CHLORIDE 0.9% 1,000 ML ONE (19:43)
[2022-09-07] MEDS ORDERED: ONDANSETRON 4 MG/2 ML VIAL ONE (19:43)
[2022-09-07 20:16] LABS: Absolute Lymphocytes (CBC) 2.1 K/uL (0.7-4.9); Hematocrit 31.7 % (36.0-45.0); Lymphocytes % 31.9 % (15.3-44.8); MCV 78.1 fL (80-100); RBC Red Blood Cell Count 4.06 M/uL (3.86-4.86)
[2022-09-07 20:34] LABS: Albumin 3.7 g/dL (3.4-5.0); Bilirubin Total 0.4 mg/dL (0.2-1.0); Protein, Total 8.1 g/dL (6.4-8.2)
[2022-09-07 21:12] LABS: Potassium 3.6 mmol/L (3.5-5.1)
--- NOTE | 2022-09-08 00:26 | ER ---
Nurse's Notes [facility] Name: Ana Cristina Fleming Age: 42 yrs Sex: Female : 1980 Arrival Date: 09/07/2022 Time: 18:53 Bed 17 Private MD: Diagnosis: Acute cholecystitis Presentation: 09/07 19:12 Chief complaint: Patient states: Pt reports left-sided abdominal pain x3 days with kb3 nausea. Denies constipation, diarrhea, vomiting. Coronavirus screen: Vaccine status: Patient reports receiving the 2nd dose of the covid vaccine. Client denies travel out of the [place] in the last 14 days. Ebola Screen: Patient negative for fever greater than or equal to 101.5 degrees Fahrenheit, and additional compatible Ebola Virus Disease symptoms Patient denies exposure to infectious person. Patient denies travel to an Ebola-affected area in the 21 days before illness onset. Initial Sepsis Screen: Does the patient meet any 2 criteria? No. Patient's initial sepsis screen is negative. Does the patient have a suspected source of infection? No. Patient's initial sepsis screen is negative. Risk Assessment: Do you want to hurt yourself or someone else? Patient reports no desire to harm self or others. Onset of symptoms was September 04, 2022. 19:12 Method Of Arrival: Ambulatory kb3 19:12 Acuity: ARTURO 3 kb3 Triage Assessment: 19:14 General: Appears in no apparent distress. Behavior is calm, cooperative. Pain: kb3 Complains of pain in umbilical area and left upper quadrant Pain does not radiate. Pain currently is 8 out of 10 on a pain scale. Quality of pain is described as sharp. GI: Reports upper abdominal pain, nausea. 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 - Social history:: Smoking status: Patient denies any tobacco usage or history of. Screenin:34 Abuse screen: Denies threats or abuse. Denies injuries from another. Nutritional ph screening: No deficits noted. Tuberculosis screening: No symptoms or risk factors identified. Fall Risk None identified. Assessment: 19:33 General: Appears uncomfortable, Behavior is calm, cooperative. Pain: Complains of pain ph in abdomen Pain does not radiate. Pain at worst was 9 out of 10 on a pain scale. Neuro: Level of Consciousness is awake, alert, obeys commands, Oriented to person, place, time, situation. Cardiovascular: Patient's skin is warm and dry. Respiratory: Airway is patent Trachea midline Respiratory effort is even, unlabored, Respiratory pattern is regular, symmetrical. GI: Abdomen is flat, non-distended, Bowel sounds present X 4 quads. Abd is soft and non tender X 4 quads. 20:15 Reassessment: Patient and/or family updated on plan of care and expected duration. Pain ha1 level reassessed. Patient is alert, oriented x 3, equal unlabored respirations, skin warm/dry/pink. pain 3/10 Patient states feeling better. 21:33 Reassessment: Patient and/or family updated on plan of care and expected duration. Pain ha1 level reassessed. Patient is alert, oriented x 3, equal unlabored respirations, skin warm/dry/pink. awaiting for CT to be completed. 22:16 Reassessment: Patient and/or family updated on plan of care and expected duration. Pain ha1 level reassessed. Patient is alert, oriented x 3, equal unlabored respirations, skin warm/dry/pink. Patient states feeling better. 09/08 03:10 Reassessment: Patient and/or family updated on plan of care and expected duration. Pain ha1 level reassessed. Patient is alert, oriented x 3, equal unlabored respirations, skin warm/dry/pink. 04:03 Reassessment: Patient and/or family updated on plan of care and expected duration. Pain ha1 level reassessed. Patient is alert, oriented x 3, equal unlabored respirations, skin warm/dry/pink. 05:00 Reassessment: Patient and/or family updated on plan of care and expected duration. Pain ha1 level reassessed. Patient is alert, oriented x 3, equal unlabored respirations, skin warm/dry/pink. Patient denies pain at this time. Patient states feeling better. Vital Signs: 09/07 19:12 BP 129 / 85; Pulse 77; Resp 20; Temp 99.6; Pulse Ox 100% ; Weight 79.83 kg; Height 5 kb3 ft. 6 in. (167.64 cm); Pain 8/10; 19:36 BP 129 / 85; Pulse 77; Resp 20 S; Pulse Ox 100% on R/A; ph 20:15 BP 114 / 85; Pulse 77; Resp 17 S; Pulse Ox 100% on R/A; ha1 21:15 BP 115 / 85; Pulse 70; Resp 16 S; Pulse Ox 100% ; ha1 22:22 BP 115 / 83; Pulse 67; Resp 16 S; Pulse Ox 100% on R/A; ha1 09/08 05:20 BP 112 / 67; Pulse 65; Resp 16 S; Pulse Ox 100% on R/A; ha1 09/07 19:12 Body Mass Index 28.41 (79.83 kg, 167.64 cm) kb3 ED Course: 09/07 18:53 Patient arrived in ED. mr 19:14 Triage completed. kb3 19:14 Arm band placed on right wrist. kb3 19:25 Inserted saline lock: 20 gauge in right antecubital area, using aseptic technique. ha1 Blood collected. 19:30 Navdeep Yeager, ERIC is PHCP. pm1 19:30 Alex Dennison MD is Attending Physician. pm1 19:33 Mere Barrera, RN is Primary Nurse. ph 19:36 Patient has correct armband on for positive identification. Placed in gown. Bed in low ph position. Call light in reach. Side rails up X 1. 20:03 CBC with Diff Sent. ph 20:03 CMP Sent. ph 20:03 Lipase Sent. ph 23:38 CT Abd/Pelvis - PO and IV Contrast In Process Unspecified. EDMS 09/08 00:25 Simón Suazo MD is Hospitalizing Provider. pm1 03:10 SARS-COV-2 Antigen Rapid Sent. ha1 05:22 No provider procedures requiring assistance completed. Patient admitted, IV remains in ha1 place. Administered Medications: 09/07 19:45 Drug: NS 0.9% 1000 ml Route: IV; Rate: 1 bolus; Site: right antecubital; ph 22:19 Follow up: Response: No adverse reaction; IV Status: Completed infusion; IV Intake: ha1 1000ml 19:50 Drug: Zofran (Ondansetron) 4 mg Route: IVP; Site: right antecubital; ph 20:15 Follow up: Response: No adverse reaction ha1 19:53 Drug: morphine 4 mg Route: IVP; Infused Over: 4 mins; Site: right antecubital; ph 20:15 Follow up: Response: No adverse reaction; Pain is decreased; RASS: Alert and Calm (0) 1 09/08 01:51 Drug: Zosyn (piperacillin-tazobactam) 3.375 grams Route: IVPB; Infused Over: 60 mins; ha1 Site: right antecubital; 02:50 Follow up: Response: No adverse reaction; IV Status: Completed infusion; IV Intake: ha1 100ml 03:10 Drug: NS 0.9% 1000 ml Route: IV; Rate: 125 ml/hr; Site: right antecubital; ha1 Medication: 05:24 VIS not applicable for this client. ha1 Intake: 09/07 22:19 IV: 1000ml; Total: 1000ml. 1 09/08 02:50 IV: 100ml; Total: 1100ml. 1 Outcome: 00:26 Decision to Hospitalize by Provider. pm1 05:22 Admitted to Med/surg accompanied by nurse, via wheelchair, room 230, Report called to sameer Rubio RN 05:22 Condition: stable 05:22 Instructed on the need for admit, Demonstrated understanding of instructions. 05:25 Patient left the ED. [facility] Signatures: Dispatcher [employer] EDNV Maryjane Crowley Patricia, RN RN ph Marinas, Patrick, LOAN CLERK LOAN CLERK pm1 Yee Yost RN RN [facility] Rox Jaeger RN RN kb3 Corrections: (The following items were deleted from the chart) 09/07 19:15 19:14 Home Meds: None; kb3 kb3 22:21 20:33 Reassessment: Patient and/or family updated on plan of care and expected ha1 duration. Pain level reassessed. Patient is alert, oriented x 3, equal unlabored respirations, skin warm/dry/pink. pain 3/10 Patient states feeling better. ha1
--- NOTE | 2022-09-08 00:27 | EDPHYS ---
Physician Documentation [facility] Name: Ana Cristina Fleming Age: 42 yrs Sex: Female : 1980 Arrival Date: 09/07/2022 Time: 18:53 Bed 17 Private MD: ED Physician Alex Dennison HPI: 09/07 19:37 This 42 yrs old Female presents to ER via Ambulatory with complaints of pm1 Abdominal Pain. 19:37 The patient presents with abdominal pain in the epigastric area. Onset: The pm1 symptoms/episode began/occurred 3 day(s) ago. The symptoms do not radiate. Associated signs and symptoms: Pertinent positives: nausea, Pertinent negatives: chest pain, diarrhea, shortness of breath, vomiting. The symptoms are described as sharp. Modifying factors: The symptoms are alleviated by nothing, the symptoms are aggravated by touching the area. Severity of pain: in the emergency department the pain is actually worse. The patient has not experienced similar symptoms in the past. The patient has not recently seen a physician. 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 - Social history:: Smoking status: Patient denies any tobacco usage or history of. ROS: 19:37 Constitutional: Negative for fever, chills, and weight loss, Cardiovascular: Negative pm1 for chest pain, palpitations, and edema, Respiratory: Negative for shortness of breath, cough, wheezing, and pleuritic chest pain. 19:37 Back: Negative for injury and pain, MS/Extremity: Negative for injury and deformity, Skin: Negative for injury, rash, and discoloration, Neuro: Negative for headache, weakness, numbness, tingling, and seizure. 19:37 Abdomen/GI: Positive for abdominal pain, nausea, of the epigastric area, Negative for vomiting, diarrhea. 19:37 All other systems are negative. Exam: 19:37 Constitutional: This is a well developed, well nourished patient who is awake, alert, pm1 and in no acute distress. Head/Face: Normocephalic, atraumatic. 19:37 Back: No spinal tenderness. No costovertebral tenderness. Full range of motion. Skin: Warm, dry with normal turgor. Normal color with no rashes, no lesions, and no evidence of cellulitis. MS/ Extremity: Pulses equal, no cyanosis. Neurovascular intact. Full, normal range of motion. 19:37 Eyes: Exam is negative for acute changes, Periorbital structures: no acute changes, Extraocular movements: no acute changes, Conjunctiva: no acute changes. 19:37 ENT: Exam is negative for acute changes, Mouth: no acute changes, Lips: normal, moist, Oral mucosa: normal, pink and intact, moist. 19:37 Cardiovascular: Exam negative for acute changes, Rate: normal, Rhythm: regular, Pulses: no pulse deficits are appreciated. 19:37 Respiratory: Exam negative for acute changes, respiratory distress, shortness of breath. 19:37 Abdomen/GI: Inspection: abdomen appears normal, Palpation: soft, in all quadrants, moderate abdominal tenderness, in the epigastric area. 19:37 Neuro: Exam negative for acute changes, Orientation: is normal, Mentation: is normal, Motor: is normal, moves all fours. Vital Signs: 19:12 BP 129 / 85; Pulse 77; Resp 20; Temp 99.6; Pulse Ox 100% ; Weight 79.83 kg; Height 5 kb3 ft. 6 in. (167.64 cm); Pain 8/10; 19:36 BP 129 / 85; Pulse 77; Resp 20 S; Pulse Ox 100% on R/A; ph 20:15 BP 114 / 85; Pulse 77; Resp 17 S; Pulse Ox 100% on R/A; ha1 21:15 BP 115 / 85; Pulse 70; Resp 16 S; Pulse Ox 100% ; ha1 22:22 BP 115 / 83; Pulse 67; Resp 16 S; Pulse Ox 100% on R/A; ha1 09/08 05:20 BP 112 / 67; Pulse 65; Resp 16 S; Pulse Ox 100% on R/A; ha1 09/07 19:12 Body Mass Index 28.41 (79.83 kg, 167.64 cm) kb3 MDM: 09/07 19:31 Patient medically screened. pm1 09/08 00:19 Data reviewed: vital signs. Data interpreted: Pulse oximetry: on room air is 100 %. pm1 Interpretation: normal. 00:24 Counseling: I had a detailed discussion with the patient and/or guardian regarding: the pm1 historical points, exam findings, and any diagnostic results supporting the discharge/admit diagnosis, lab results, radiology results, the need for further work-up and treatment in the hospital. 00:32 Physician consultation: Jose Marvin MD was called at 00:33, was contacted at 00:33, pm1 regarding consult, patient's condition, and will see patient tomorrow, MRI in the AM, admit to the hospitalist. 00:34 Physician consultation: Hair TELLEZ was contacted at 00:34, regarding admission, pm1 patient's condition, and will see patient. 09/07 19:37 Order name: CBC with Diff; Complete Time: 20:53 pm1 09/07 19:37 Order name: CMP; Complete Time: 21:22 pm1 09/07 19:37 Order name: Lipase; Complete Time: 21:22 pm1 09/08 01:54 Order name: SARS-COV-2 Antigen Rapid tw5 09/08 02:58 Order name: SARS-COV-2 Antigen Rapid EDMS 09/08 05:20 Order name: CBC with Automated Diff EDMS 09/07 19:37 Order name: IV Saline Lock; Complete Time: 20:03 pm1 09/07 19:37 Order name: Labs collected and sent; Complete Time: 20:03 pm1 09/07 19:37 Order name: CT Abd/Pelvis - PO and IV Contrast pm1 09/08 00:25 Order name: NPO; Complete Time: 03:17 pm1 Administered Medications: 09/07 19:45 Drug: NS 0.9% 1000 ml Route: IV; Rate: 1 bolus; Site: right antecubital; ph 22:19 Follow up: Response: No adverse reaction; IV Status: Completed infusion; IV Intake: ha1 1000ml 19:50 Drug: Zofran (Ondansetron) 4 mg Route: IVP; Site: right antecubital; ph 20:15 Follow up: Response: No adverse reaction ha1 19:53 Drug: morphine 4 mg Route: IVP; Infused Over: 4 mins; Site: right antecubital; ph 20:15 Follow up: Response: No adverse reaction; Pain is decreased; RASS: Alert and Calm (0) ha1 09/08 01:51 Drug: Zosyn (piperacillin-tazobactam) 3.375 grams Route: IVPB; Infused Over: 60 mins; ha1 Site: right antecubital; 02:50 Follow up: Response: No adverse reaction; IV Status: Completed infusion; IV Intake: ha1 100ml 03:10 Drug: NS 0.9% 1000 ml Route: IV; Rate: 125 ml/hr; Site: right antecubital; ha1 Disposition Summary: 09/08/22 00:26 Hospitalization Ordered Hospitalization Status: Inpatient Admission pm1 Provider: Simón Suazo pm1 Location: Telemetry/MedSurg (Inpatient) pm1 Condition: Stable pm1 Problem: new pm1 Symptoms: have improved pm1 Bed/Room Type: Standard pm1 Room Assignment: 230(09/08/22 03:34) Diagnosis - Acute cholecystitis pm1 Forms: - Medication Reconciliation Form pm1 - SBAR form pm1 Addendum: 09/14/2022 09:58 Co-signature as Attending Physician, Alex Dennison MD I agree with the assessment and c solitario plan of care. Signatures: Dispatcher [employer] EDMS Alex Dennison MD MD cha Hall, Patricia RN RN Asiya Chapman RN ANUPAMA Navdeep Yeager, ERIC SCROLL SHEAR OPERATOR pm1 Yee Yost RN RN 1 Rox Jaeger RN RN kb3 Corrections: (The following items were deleted from the chart) 09/07 19:15 19:14 Home Meds: None; kb3 kb3 09/08 03:34 00:26 pm1 cg
[2022-09-08] MEDS ORDERED: PIPERACIL/TAZO 3.375 GM VIAL IV ONE (01:24)
[2022-09-08] MEDS ORDERED: NA CHLORIDE 0.9% 100 ML IV ONE (01:24)
[2022-09-08] MEDS ORDERED: NA CHLORIDE 0.9% 1,000 ML ONE (01:24)
--- NOTE | 2022-09-08 01:55 | P.HP ---
Certification for Inpatient Patient admitted to: Observation With expected LOS: <2 Midnights Patient will require the following post-hospital care: None Practitioner: I am a practitioner with admitting privileges, knowledge of patient current condition, hospital course, and medical plan of care. Services: Services provided to patient in accordance with Admission requirements found in Title 42 Section 412.3 of the Code of Federal Regulations <Hair Schneider Brinda Amos - Last Filed: 09/08/22 01:52> Patient History Date of Service: 09/08/22 Reason for admission: Acute cholecystitis History of Present Illness: 42-year-old female with history of hypothyroidism presents emergency department for 2 to 3 days of epigastric pain worse with food/liquids. She was evaluated in the emergency department labs were unremarkable CT showed cholelithiasis in the gallbladder neck with severe gallbladder distention and mild wall thickening. No significant pericholecystic fluid. Advanced intra and extrahepatic biliary ductal dilatation. Acute cholecystitis cannot entirely be excluded. Right upper quadrant ultrasound and/or MRCP is recommended. ED provider discussed case with general surgeon Dr. Marvin who recommends admission to the hospital service with MRCP in the morning. 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 moist/pink, EOMI, Sclerae nonicteric Neck: Supple, 2+ carotid pulse no bruit, No LAD, Without JVD or thyroid abnormality Respiratory: Clear to auscultation bilaterally, Normal air movement Cardiovascular: Regular rate/rhythm, Normal S1 S2 Capillary refill: <2 Seconds Gastrointestinal: Normal bowel sounds, No masses, No rebound, No guarding, Tenderness (Epigastric, right upper quadrant tenderness) Musculoskeletal: No tenderness Integumentary: No rashes Neurological: Normal speech, Normal strength at 5/5 x4 extr, Normal tone, Normal affect - Studies Laboratory Data (last 24 hrs) 09/07/22 19:56: Sodium 138, Potassium 3.6, BUN 12, Creatinine 0.78, Glucose 92, Total Bilirubin 0.4, AST 30, ALT 27, Alkaline Phosphatase 82, Lipase 107 09/07/22 19:56: WBC 6.70, Hgb 10.4 L, Hct 31.7 L, Plt Count 253 <Hair Schneider - Last Filed: 09/08/22 01:52> - Studies Laboratory Data (last 24 hrs) 09/07/22 19:56: Sodium 138, Potassium 3.6, BUN 12, Creatinine 0.78, Glucose 92, Total Bilirubin 0.4, AST 30, ALT 27, Alkaline Phosphatase 82, Lipase 107 09/07/22 19:56: WBC 6.70, Hgb 10.4 L, Hct 31.7 L, Plt Count 253 <Simón Suazo - Last Filed: 09/08/22 16:38> Assessment and Plan - Plan Assessment: Acute cholecystitis Hypothyroidism Plan: Acute cholecystitis: CT demonstrated cholelithiasis in the gallbladder neck with severe gallbladder distention and mild wall thickening, advanced intra and extrahepatic duct biliary ductal dilatation. LFTs completely normal at this time as well as lipase. ED provider discussed case with general surgery who recommends obtaining MRCP prior to further intervention. Patient is n.p.o. on IVF, IV antibiotics with as needed pain medications and antiemetics. Appreciate further input from surgery after results from MRCP. Hypothyroidism: Continue home medications when appropriate. DVT PPX: SCD Code status: Full Discharge Plan: Home Plan to discharge in: 24 Hours - Advance Directives Does patient have a Living Will: No Does patient have a Durable POA for Healthcare: No - Code Status/Comfort Care Code Status Assessed: Yes (Full code) Critical Care: No Time Spent Managing Pts Care (In Minutes): 55 <Hair Schneider - Last Filed: 09/08/22 01:52> Physician Review: Patient Assessed, Agree with Above Assessment and Plan <Simón Suazo - Last Filed: 09/08/22 16:38>
[2022-09-08] MEDS ORDERED: HYDROMORPHONE HCL 0.5 MG/0.5 ML INJ ONE (02:42)
[2022-09-08 02:58] LABS: SARS-CoV-2 Antigen Rapid Res Negative (Negative)
[2022-09-08] MEDS: HYDROMORPHONE HCL 0.5 MG/0.5 ML INJ IV PRN ×4 (03:15→19:25)
[2022-09-08 05:17] LABS: Absolute Lymphocytes (CBC) 2.1 K/uL (0.7-4.9); Hematocrit 28.2 % (36.0-45.0); Lymphocytes % 35.3 % (15.3-44.8); MCV 78.8 fL (80-100); MPV 9.2 fL (7.6-11.3); RBC Red Blood Cell Count 3.58 M/uL (3.86-4.86)
[2022-09-08 05:34] LABS: Albumin 3.1 g/dL (3.4-5.0); Bilirubin Total 0.9 mg/dL (0.2-1.0); Potassium 3.5 mmol/L (3.5-5.1); Protein, Total 6.9 g/dL (6.4-8.2)
[2022-09-08 05:55] VITALS: BMI 29.0
[2022-09-08] MEDS: Ringers Lactate 1,000 ML IV SCH ×2 (06:07→17:45)
[2022-09-08] MEDS: ONDANSETRON 4 MG/2 ML VIAL IV PRN ×2 (06:47→19:25)
[2022-09-08] MEDS ORDERED: KCL 20 MEQ/100 mL IVPB 20 MEQ/100 ML BAG IV SCH (08:00)
[2022-09-08] MEDS: PIPER TAZO 3.375 GM in NA CHLORIDE 0.9% 100 ML IV SCH ×2 (09:00→17:46)
--- NOTE | 2022-09-08 09:43 | RAD REPORT ---
EXAM DESCRIPTION: MRI - Cholangiogram - 09/08/2022 7:59 am CLINICAL HISTORY: ABD pain, ABN CT COMPARISON: No comparisons FINDINGS: Three-dimensional MRCP was performed using maximum intensity projection reconstruction on the same work station. Mild intrahepatic biliary tree dilatation. Common bile duct is mildly dilated with a 7 mm filling def ect distally. The pancreatic duct is not pathologically dilated. Gallbladder appears dilated and contains a large gallstone. Limited T2 sequences through the abdomen demonstrates no bulky adenopathy, significant free fluid or abscess. IMPRESSION: Gallbladder is dilated and contains a large gallstone. 7 mm filling defect distal common bile duct is likely a common bile duct stone. This would be compati ble with choledocholithiasis.
--- NOTE | 2022-09-08 12:34 | RAD REPORT ---
EXAM DESCRIPTION: CT Abdomen and Pelvis With Intravenous Contrast CLINICAL HISTORY: The patient is 42 years old and is Female; LUQ abdominal pain TECHNIQUE: Axial computed tomography images of the abdomen and pelvis with intravenous contrast. S agittal and coronal reformatted images were created and reviewed. This CT exam was performed using one or more of the following dose reduction techniques: automated exposure control, adjustment of t he mA and/or kV according to patient size, and/or use of iterative reconstruction technique. DLP: 2405 mGy*cm COMPARISON: None. FINDINGS: LUNG BASES: Lung bases are clear. HEART: Visualized heart is normal. ABDOMEN: LIVER: Unremarkable. No mass. GALLBLADDER AND BILE DUCTS: Cholelithiasis in the gallbladder neck with severe gallbladder distenti on and mild wall thickening. No significant pericardial cystic fluid. Advanced intra and extra hepati c biliary ductal dilatation. PANCREAS: Unremarkable. No mass. No ductal dilation. SPLEEN: Unremarkable. No splenomegaly. ADRENALS: Unremarkable. No mass. KIDNEYS AND URETERS: Unremarkable. No solid mass. No hydronephrosis. STOMACH AND BOWEL: Prior Bryce-en-Y gastroplasty. No obstruction. Enteric contrast in the small and large bowel. No mucosal thickening. Moderate stool burden. PELVIS: APPENDIX: The appendix is seen and is within normal limits. BLADDER: Unremarkable. No mass. REPRODUCTIVE: Prior hysterectomy. ABDOMEN and PELVIS: INTRAPERITONEAL SPACE: Unremarkable. No free air. No significant fluid collection. BONES/JOINTS: Lower lumbar degenerative changes. No acute fracture. No dislocation. SOFT TISSUES: Unremarkable. VASCULATURE: Unremarkable. No abdominal aortic aneurysm. LYMPH NODES: Unremarkable. No enlarged lymph nodes. IMPRESSION: 1. Cholelithiasis in the gallbladder neck with severe gallbladder distention and mild wall thickening. No significant pericardial cystic fluid. Advanced intra and extra hepatic biliary du ctal dilatation. Acute cholecystitis cannot be entirely excluded. Right upper quadrant ultrasound a nd/or MRCP is recommended. 2. Moderate stool burden. Correlate for constipation. 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 The interpreting radiologist is fully responsible for the content of the report.
--- NOTE | 2022-09-08 19:27 | CON ---
Date of Consultation: 09/08/2022 Diagnoses: Acute cholecystitis, symptomatic cholelithiasis, choledocholithiasis. History Of Present Illness: This is a case of a 42-year-old patient comes to us with epigastric and right upper quadrant pain. She states it has been feeling like this for about a week, but is mild. 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 She is very familiarized with health care . She was trying to improve on her own, changing her diet but this morning and overnight she just go t worse and she decided to come and was diagnosed with acute cholecystitis and symptomatic cholelithi asis. The patient has history of gastric sta[place] and then she pb t back for another surgery, but she is not sure exactly, she states it is a mini bariatric surgery do ne. It was done once again out of the country in [place] and she is trying to look at her house to se e if she has documentation that may share some light on in the possibility of doing any other interve ntion that may require ERCP. Past Medical History: Include hypothyroidism, bladder sling, hysterectomy, gastric bariatric surgery . She claimed it was a gastric stapling, although she says she had 2 different surgeries. Social History: She does not smoke. She drinks alcohol just occasionally. Family History: Mother with hyperlipidemia. Review of Systems: See above. Ten points otherwise unremarkable. Physical Examination: Chest: Clear. Neck: Supple. Abdomen: Soft and depressible. Mild epigastric tenderness. No Quiñones sign. Extremities: Good capillary refill. Eyes: Pupils are equal and reactive. Anicteric. Laboratory Data: Blood work shows WBC count of 6.7, hemoglobin of 10.4, and platelets of 253. Potas sium 3.6, total bilirubin of 0.4, alkaline phosphate 82. CAT scan of the abdomen and pelvis shows ch olelithiasis with gallbladder distention and mild wall thickening and as described by the radiologist , an advanced intra and extrahepatic biliary duct dilatation. MRCP, we just ordered it and it was do ne. It shows, as per Dr. Shah, the gallbladder is dilated with large gallstone and also a filling d efect in the common bile duct, likely a common bile duct stone consistent with choledocholithiasis. Assessment: This is a 42-year-old patient with acute cholecystitis, symptomatic cholelithiasis, hist ory of bariatric surgery, now with choledocholithiasis. At this moment, assuming that it is only gas tric stapling, we still cannot help at this institution since we do not have at this moment ERCP serv ice. The patient will be transferred out of this institution for continuation of care. JOVANNA/NADINE Voice ID: [id number] Report ID: [id number]
[2022-09-08 22:45] VITALS: BP 115/73; TEMP 97.3
--- NOTE | 2022-09-08 22:53 | P.DS ---
Admission Date: 09/08/22 Discharge Date: 09/08/22 Disposition: TRANSFER TO [facility] Discharge Condition: FAIR Reason for Admission: Acute cholecystitis Consultations: SurgeryDr. Marvin Procedures: MRCP 09/08/2022 FINDINGS: Three-dimensional MRCP was performed using maximum intensity projection reconstruction on the same work station. Mild intrahepatic biliary tree dilatation. Common bile duct is mildly dilated with a 7 mm filling defect distally. The pancreatic duct is not pathologically dilated. Gallbladder appears dilated and contains a large gallstone. Limited T2 sequences through the abdomen demonstrates no bulky adenopathy, significant free fluid or abscess. IMPRESSION: Gallbladder is dilated and contains a large gallstone. 7 mm filling defect distal common bile duct is likely a common bile duct stone. This would be compatible with choledocholithiasis. CT abdomen pelvis 09/07/2022 FINDINGS: LUNG BASES: Lung bases are clear. HEART: Visualized heart is normal. ABDOMEN: LIVER: Unremarkable. No mass. GALLBLADDER AND BILE DUCTS: Cholelithiasis in the gallbladder neck with severe gallbladder distention and mild wall thickening. No significant pericardial cystic fluid. Advanced intra and extra hepatic biliary ductal dilatation. PANCREAS: Unremarkable. No mass. No ductal dilation. SPLEEN: Unremarkable. No splenomegaly. ADRENALS: Unremarkable. No mass. KIDNEYS AND URETERS: Unremarkable. No solid mass. No hydronephrosis. STOMACH AND BOWEL: Prior Bryce-en-Y gastroplasty. No obstruction. Enteric contrast in the small and large bowel. No mucosal thickening. Moderate stool burden. PELVIS: APPENDIX: The appendix is seen and is within normal limits. BLADDER: Unremarkable. No mass. REPRODUCTIVE: Prior hysterectomy. ABDOMEN and PELVIS: INTRAPERITONEAL SPACE: Unremarkable. No free air. No significant fluid collection. BONES/JOINTS: Lower lumbar degenerative changes. No acute fracture. No dislocation. SOFT TISSUES: Unremarkable. VASCULATURE: Unremarkable. No abdominal aortic aneurysm. LYMPH NODES: Unremarkable. No enlarged lymph nodes. IMPRESSION: 1. Cholelithiasis in the gallbladder neck with severe gallbladder distention and mild wall thickening. No significant pericardial cystic fluid. Advanced intra and extra hepatic biliary ductal dilatation. Acute cholecystitis cannot be entirely excluded. Right upper quadrant ultrasound and/or MRCP is recommended. 2. Moderate stool burden. Correlate for constipation Brief History of Present Illness: 42-year-old female with history of hypothyroidism presents emergency department for 2 to 3 days of epigastric pain worse with food/liquids. She was evaluated in the emergency department labs were unremarkable CT showed cholelithiasis in the gallbladder neck with severe gallbladder distention and mild wall thickening. No significant pericholecystic fluid. Advanced intra and extrahepatic biliary ductal dilatation. Acute cholecystitis cannot entirely be excluded. Right upper quadrant ultrasound and/or MRCP is recommended. ED provider discussed case with general surgeon Dr. Marvin who recommends admission to the hospital service with MRCP in the morning. Hospital Course: Patient was admitted for acute cholecystitis, she had MRCP performed which revealed choledocholithiasis. Currently in our facility we do not have ERCP available. Patient was transferred to [facility] for further evaluation and management of acute cholecystitis/choledocholithiasis. Attending physician Dr. Suazo spoke with Dr. Mckeon at [facility] who accepted the patient. Vital Signs/Physical Exam: Temp Pulse Resp BP Pulse Ox 97.3 F 56 17 115/73 98 09/08/22 20:00 09/08/22 20:00 09/08/22 20:00 09/08/22 20:00 09/08/22 20:00 General: Alert, In no apparent distress, Oriented x3 HEENT: Atraumatic, PERRLA, EOMI Neck: Supple, JVD not distended Respiratory: Clear to auscultation bilaterally, Normal air movement Cardiovascular: Regular rate/rhythm, Normal S1 S2 Gastrointestinal: Normal bowel sounds, Tenderness (epigastric tenderness) Musculoskeletal: No tenderness Integumentary: No rashes Neurological: Normal speech, Normal tone, Normal affect Laboratory Data at Discharge: WBC 6.00 K/uL (4.3-10.9) 09/08/22 04:53 Hgb 9.1 g/dL (12.0-15.0) L D 09/08/22 04:53 Hct 28.2 % (36.0-45.0) L 09/08/22 04:53 Plt Count 231 K/uL (152-406) 09/08/22 04:53 Sodium 140 mmol/L (136-145) 09/08/22 04:53 Potassium 3.5 mmol/L (3.5-5.1) 09/08/22 04:53 BUN 10 mg/dL (7-18) 09/08/22 04:53 Creatinine 0.81 mg/dL (0.55-1.3) 09/08/22 04:53 Glucose 87 mg/dL (74-106) 09/08/22 04:53 Total Bilirubin 0.9 mg/dL (0.2-1.0) 09/08/22 04:53 AST 21 U/L (15-37) 09/08/22 04:53 ALT 23 U/L (12-78) 09/08/22 04:53 Alkaline Phosphatase 67 U/L (45-117) 09/08/22 04:53 Lipase 107 U/L (73-393) 09/07/22 19:56 Home Medications: Levothyroxine [Synthroid*] 0.25 mg PO DAILY 09/08/22 hydroCHLOROthiazide [Hydrochlorothiazide] 25 mg PO DAILY 09/08/22 Followup: Faviola Diaz MD [Primary Care Provider] -
[2022-09-08 22:57] VITALS: O2SAT 98
== END 2022-09-08 22:13 | disposition short-term general hospital (02) ==
LOC: ER 18:50 → ERHOLD 09-08 01:27 → 2ND 09-08 04:14
PROVIDERS: ADMIT Internal Medicine; ATTEND Internal Medicine
DX: K80.00 Calculus of gallbladder with acute cholecystitis without obstruction (principal); K80.50 Calculus of bile duct without cholangitis or cholecystitis without obstruction; E03.9 Hypothyroidism, unspecified; Z98.84 Bariatric surgery status; Z20.822 Contact with and (suspected) exposure to COVID-19
CPT/HCPCS: 96365; 96361; 85025 ×2; 36415; 83690; 80053 ×2; 74177; 74181; 96375; 99285; 87811; Q9967; J2543 ×3; J3480; J1170 ×4; J7120 ×2; J7030 ×2; J2405 ×3; G0378

== ENCOUNTER 2022-10-25 06:09 | Day surgery (SDC) | payer BC ==
[2022-10-25 06:35] LABS: Absolute Lymphocytes (CBC) 1.7 K/uL (0.7-4.9); Lymphocytes % 45.3 % (15.3-44.8); MCV 76.9 fL (80-100); MPV 8.5 fL (7.6-11.3); RBC Red Blood Cell Count 4.17 M/uL (3.86-4.86)
[2022-10-25] MEDS ORDERED: Ringers Lactate 1,000 ML IV ONE (06:46)
[2022-10-25] MEDS ORDERED: CEFAZOLIN SODIUM 1 GM/VIAL ONE (06:46)
[2022-10-25 06:56] LABS: Albumin 3.5 g/dL (3.4-5.0); Bilirubin Direct 0.1 mg/dL (0-0.2); Bilirubin Total 0.4 mg/dL (0.2-1.0); Potassium 3.6 mmol/L (3.5-5.1); Protein, Total 7.3 g/dL (6.4-8.2)
[2022-10-25 07:06] VITALS: O2SAT 100
--- NOTE | 2022-10-25 07:33 | RAD REPORT ---
EXAM DESCRIPTION: RAD - Chest Pa And Lat (2 Views) - 10/25/2022 6:41 am CLINICAL HISTORY: PREOP COMPARISON: No comparisons FINDINGS: Lines: None. Lungs: No evidence of edema or pneumonia. Pleural: No significant pleural effusions or pneumothorax. Cardiac: The heart size is within normal limits. Mediastinum: Within normal limits. Bones: No acute fractures. Other: None IMPRESSION: No acute cardiopulmonary disease.
[2022-10-25] MEDS: CEFOXITIN SODIUM 1 GM/VIAL ONE ×2 (07:51→08:38)
[2022-10-25] MEDS ORDERED: propofoL 200 MG/20 ML VIAL IV ONE (08:26)
[2022-10-25] MEDS ORDERED: MIDAZOLAM HCL 2 MG/2 ML INJ ONE (08:26)
[2022-10-25] MEDS ORDERED: FENTANYL CITR 100 MCG/2 ML ONE (08:26)
[2022-10-25] MEDS ORDERED: ROCURONIUM 50 MG/5 ML VIAL IV ONE (08:27)
[2022-10-25] MEDS ORDERED: LIDOCAINE 2% MPF 5 ML VIAL ONE (08:27)
[2022-10-25] MEDS ORDERED: NS 0.9% VIAL 10 ML ONE (08:35)
[2022-10-25] MEDS ORDERED: KETOROLAC 30 MG/ML INJ ONE (08:47)
[2022-10-25] MEDS ORDERED: dexAMETHasone 10 MG/ML VIAL ONE (08:47)
[2022-10-25] MEDS ORDERED: ONDANSETRON 4 MG/2 ML VIAL ONE (08:55)
[2022-10-25] MEDS ORDERED: GLYCOPYRROLATE 0.2 MG/ML SYR ONE (08:56)
[2022-10-25] MEDS ORDERED: Mastisol Adhesive Liq ONE (09:26)
--- NOTE | 2022-10-25 09:27 | P.BOP ---
Preoperative diagnosis: acute cholecystitis, symptomatic cholelithiasis Postoperative diagnosis: same Primary procedure: Laparoscopic cholecystectomy Estimated blood loss: <10cc Specimen: gb Findings: as above Anesthesia: General Complications: None Transferred to: Recovery Room Condition: Good
[2022-10-25] MEDS ORDERED: HYDROMORPHONE HCL 1 MG/ML INJ ONE (09:53)
[2022-10-25] MEDS ORDERED: CODEINE 30MG/APAP 300MG TAB ONE (10:45)
[2022-10-25] MEDS: CODEINE 30MG/APAP 300MG TAB PO ONE (10:55)
[2022-10-25 11:15] VITALS: TEMP 98.1
[2022-10-25 11:19] VITALS: BP 125/68
--- NOTE | 2022-10-25 11:58 | OP ---
Date of Procedure: 10/25/2022 Surgeon: Jose Marvin MD Preoperative Diagnoses: Acute cholecystitis, symptomatic cholelithiasis, status post MRCP. Full dil atation of the common bile duct. History of gastric bypass. Postoperative Diagnoses: Acute cholecystitis, symptomatic cholelithiasis, status post MRCP. Full di latation of the common bile duct. History of gastric bypass. Procedure: Laparoscopic cholecystectomy. Anesthesia: General plus local. Complications: None. Estimated Blood Loss: Less than 10 cc. Findings: Patient has an acute cholecystitis, symptomatic cholelithiasis, multiple adhesions of the omentum to the liver and the gallbladder inspected after the previous gastric surgery. Patient also have history of abdominoplasty. So, patient also has some adhesions in the periumbilical region. Complications: None. Indication: This is a case of a female, who comes to us, admitted several weeks ago with acute snehal cystitis, symptomatic cholelithiasis, found to have a dilated common bile duct. Was transferred out of the area for an ERCP. Patient comes back, cleared by the GI and imaging for laparoscopic, possibl e open cholecystectomy, with benefits, alternatives, and risks including, but not limited to, infecti on, bleeding, damage to adjacent structures, anesthesia complication, choledocholithiasis, bile leak, pancreatitis, LA, and even . She also understands this may not relieve any symptoms. She migh t need more than one surgical intervention. She understood, signed a consent. Description Of Procedure: Patient was brought to the operating room, placed in supine position. Ane sthesia was done without complication. Abdominal area was prepped and draped in the usual sterile fa shion. Local anesthesia was applied followed by sharp incision of the skin in the periumbilical enma on. Patient had previous abdominoplasty in that area. So, we encountered some scar tissue going thr ough the layers of the fascia in a slow and careful fashion. We were able to enter the peritoneum. Vicryl #1 placed inside the fascia. Jasper trocar was carefully introduced. Pneumoperitoneum was ob tained. I placed 3 more trocars, 5 mm each, one of them in the right upper quadrant under direct vis ualization. This allowed me to put a grasper in the fundus of the gallbladder, released some adhesio ns with Endo Kareem, the person had from most likely previous surgeries in the stomach. When we rele ased those, we proceeded then to put a grasper in the fundus of the gallbladder and the gallbladder w as retracted in the inferolateral fashion exposing the triangle of Calot, obtaining critical view. C ystic duct and cystic artery were clearly isolated, freed circumferentially and a connection between those and the gallbladder was clearly identified. I proceeded to ligate those by using at least 3 cl ips proximal, 1 clip distal, ligation in middle. Same was done with the cystic artery. No bile leak . No bleeding. The gallbladder was removed from liver using Bovie cauterizer and removed from abdom inal cavity using an EndoCatch through the umbilical incision. Area was inspected once again. No bi le leak. No bleeding. The area of the lysis of adhesions were inspected with no bleeding. At that moment, I proceeded to remove the trocars under direct vision, deflated pneumoperitoneum, closing the fascia with #1 Vicryl, irrigated subcutaneous tissue, closed that with 3-0 chromic and the skin in a subcuticular fashion with 3-0 chromic and Steri-Strips on top. Sponge count and instrument counts c orrect. Patient tolerated the procedure well. Patient was sent to Recovery in stable condition. JOVANNA/NADINE Voice ID: [id number] Report ID: [id number]
--- NOTE | 2022-10-25 11:58 | DS ---
Date of Discharge: 10/25/2022 Diagnoses: Acute cholecystitis, symptomatic cholelithiasis. Procedure: Laparoscopic cholecystectomy. Disposition: Home. Activity: As tolerated. No heavy lifting. Plan: Follow up in my office in 1 week. Call for appointment at [phone]. Keep area dry for 48 leigh ann rs, then may shower. Keep Steri-Strips intact. Medications: See orders. JOVANNA/NADINE Voice ID: [id number] Report ID: [id number]
== END 2022-10-25 11:17 | disposition home or self-care (01) ==
LOC: OR 06:09
PROVIDERS: ATTEND Surgery
PROC: 0FT44ZZ Resection of Gallbladder, Percutaneous Endoscopic Approach (ICD-10-PCS; principal; 2022-10-25 08:30)
DX: K80.10 Calculus of gallbladder with chronic cholecystitis without obstruction (principal); R10.13 Epigastric pain; E03.9 Hypothyroidism, unspecified; E66.9 Obesity, unspecified; Z98.84 Bariatric surgery status
CPT/HCPCS: 85025; 80048; 36415; 82150; 80076; 88304; 83690; 71046; 47562; J2704; J2001; J2250; J3010; J1100; A4216; J1170; J7120; J0694; J2405; J0690

== ENCOUNTER 2023-11-20 07:44 | Day surgery (SDC) | payer BC ==
[2023-11-20] MEDS ORDERED: SOD FERRIC GLUC COMPLX/SUCROSE 250 MG in NA CHLORIDE 0.9% 250 ML IV ONE (08:00)
[2023-11-20 08:31] VITALS: BP 110/74; TEMP 98.4; O2SAT 100; BMI 27.4
== END 2023-11-20 10:30 | disposition home or self-care (01) ==
LOC: DS 07:44
PROVIDERS: ATTEND Family Medicine
DX: D64.9 Anemia, unspecified (principal)
CPT/HCPCS: 96365; 96366; J2916; J7050